=== PATIENT | male | born 1965 | race Caucasian/White ===

== ENCOUNTER 2016-06-09 17:30 | Emergency (ER) | payer SELFPAY ==
[2016-06-09 17:40] VITALS: TEMP 97.7; BMI 28.8
[2016-06-09 18:44] LABS: BASOPHIL 0.6 % (0-2.0); EOSINOPHIL 1.6 % (0-4.5); MCH 28.9 pg (25.7-33.7); MCHC 33.3 g/dl (32.0-35.9); MEAN CELL VOLUME 86.8 fl (80-96); NEUTROPHILS 47.5 % (42.8-82.8); PLATELET COUNT 249 K/MM3 (134-434); RDW 13.7 % (11.9-15.9); WHITE BLOOD COUNT 8.2 K/mm3 (4.0-10.0)
[2016-06-09 19:12] LABS: ANION GAP 7 (8-16); CALCIUM 8.7 mg/dL (8.5-10.1); CO2 30 mmol/L (21-32); CREATININE 1.2 mg/dL (0.7-1.3); GLUCOSE,RANDOM 93 mg/dL (74-106); SGOT/AST 23 U/L (15-37); SGPT/ALT 56 U/L (12-78)
[2016-06-09 19:16] LABS: ALK PHOS 95 U/L (45-117); BILIRUBIN,TOTAL 0.6 mg/dL (0.2-1.0); TOT PROT 7.1 g/dl (6.4-8.2); TROPONIN I < 0.02 ng/ml (0.00-0.05)
--- NOTE | 2016-06-09 20:53 | PDOC ---
History of Present Illness - General Chief Complaint: Syncope/Near Syncope Stated Complaint: CHEST PAIN&SYNCOPE Time Seen by Provider: 06/09/16 18:01 History Source: Patient Exam Limitations: No Limitations - History of Present Illness Presenting Symptoms: Chest Pain Timing/Duration: reports: intermittent Severity/Quality: reports: mild Location: reports: substernal Chest Pain Radiation: reports: arms (left) Activities at Onset: reports: none Prior Chest Pain/Cardiac Workup: reports: No prior chest pain, No prior cardiac workup, Non-cardiac Modifying Factors: improves with: rest Past History - Travel Traveled outside of the country in the last 30 days: No Close contact w/someone who was outside of country & ill: No - Past Medical History Allergies/Adverse Reactions: Allergies Allergy/AdvReac Type Severity Reaction Status Date / Time Penicillins Allergy Mild Verified 06/09/16 17:33 acetaminophen [From Tylenol] Allergy Rash Verified 06/09/16 17:33 Home Medications: Ambulatory Orders Enalapril Maleate [Vasotec -] 10 mg PO DAILY 05/19/13 Diabetes: Yes HTN: Yes Suicide Attempt (Hx): No - Surgical History Cholecystectomy: Yes - Immunization History Immunization Up to Date: Yes - Psycho/Social/Smoking Cessation Hx Anxiety: No Suicidal Ideation: No Smoking Status: No Smoking History: Never smoked Number of Cigarettes Smoked Daily: 0 Cigars Per Day: 0 Hx Alcohol Use: No Drug/Substance Use Hx: No Substance Use Type: None Cardiac Specific PMH - Complaint Specific PMHX Abdominal Aortic Aneurysm: No Angina: No Review of Systems - Review of Systems Able to Perform ROS?: Yes Comments:: 06/09/16 20:52 CONSTITUTIONAL: Absent: fever, chills, diaphoresis, generalized weakness, malaise, loss of appetite HEENT: Absent: rhinorrhea, nasal congestion, throat pain, throat swelling, difficulty swallowing, mouth swelling, ear pain, eye pain, visual Changes CARDIOVASCULAR: Left sided cp Absent: loss of consciousness, palpitations, irregular heart rate, peripheral edema RESPIRATORY: Absent: cough, shortness of breath, dyspnea with exertion, orthopnea, wheezing, stridor, hemoptysis GASTROINTESTINAL: Absent: abdominal pain, abdominal distension, nausea, vomiting, diarrhea, constipation, melena, hematochezia GENITOURINARY: Absent: dysuria, frequency, urgency, hesitancy, hematuria, flank pain, genital pain MUSCULOSKELETAL: Absent: myalgia, arthralgia, joint swelling SKIN: Absent: rash, itching, pallor HEMATOLOGIC/IMMUNOLOGIC: Absent: easy bleeding, easy bruising, lymphadenopathy, frequent infections ENDOCRINE: Absent: unexplained weight gain, unexplained weight loss, heat intolerance, cold intolerance NEUROLOGIC: Absent: headache, focal weakness or paresthesias, dizziness, unsteady gait, seizure, mental status changes, bladder or bowel incontinence PSYCHIATRIC: Absent: anxiety, depression, suicidal or homicidal ideation, hallucinations. Is the patient limited Georgian proficient: No *Physical Exam - Vital Signs Last Vital Signs Temp Pulse Resp BP Pulse Ox 97.7 F 70 19 161/100 100 06/09/16 17:33 06/09/16 17:33 06/09/16 17:33 06/09/16 17:33 06/09/16 17:33 - Physical Exam Comments: 06/09/16 20:53 GENERAL: Well developed, well nourished. Awake and alert. No acute distress. HEENT: Normocephalic, atraumatic. PERRLA, EOMI. No conjunctival pallor. Sclera are non- icteric. Moist mucous membranes. Oropharynx is clear. NECK: Supple. Full ROM. No JVD. Carotid pulses 2+ and symmetric, without bruits. No thyromegaly. No lymphadenopathy. CARDIOVASCULAR: Regular rate and rhythm. No murmurs, rubs, or gallops. Distal pulses are 2+ and symmetric. PULMONARY: No evidence of respiratory distress. Lungs clear to auscultation bilaterally. No wheezing, rales or rhonchi. ABDOMINAL: Soft. Non-tender. Non-distended. No rebound or guarding. No organomegaly. Normoactive bowel sounds. MUSCULOSKELETAL Normal range of motion at all joints. No bony deformities or tenderness. No CVA tenderness. EXTREMITIES: No cyanosis. No clubbing. No edema. No calf tenderness. SKIN: Warm and dry. Normal capillary refill. No rashes. No jaundice. NEUROLOGICAL: Alert, awake, appropriate. Cranial nerves 2-12 intact. No deficits to light touch and temperature in face, upper extremities and lower extremities. No motor deficits in the in face, upper extremities and lower extremities. Normoreflexic in the upper and lower extremities. Normal speech. Toes are down- going bilaterally. Gait is normal without ataxia. PSYCHIATRIC: Cooperative. Good eye contact. Appropriate mood and affect. Heart Score/ECG Review - History History: Slightly suspicious - Electrocardiogram EKG: Normal - Age Age: 45-65 - Risk Factors Risk Factors Heart Score: Yes Hx Obesity Based on the list above the patient has:: No risk factors known - Troponin Troponin: </= normal limit - Score Heart Score - Total: 1 - ECG Intrepretation Rhythm: Regular Rhythm - Hamilton Hamilton: Normal - P and NM Prominent R with upright T in V1 (true posterior ND): No Delta Wave(s) Present: No WPW: No - QRS Poor R Wave Progression: No Q Wave Present: No - ST and T Early Repolarization: No Non Specific ST-T Wave changes: No ED Treatment Course - LABORATORY CBC & Chemistry Diagram: 06/09/16 18:10 06/09/16 18:10 - ADDITIONAL ORDERS Additional order review: Laboratory Results 06/09/16 06/09/16 06/09/16 23:04 23:04 20:52 D-Dimer < 200 Sodium Potassium Chloride Carbon Dioxide Anion Gap BUN Creatinine Creat Clearance w eGFR Random Glucose Calcium Total Bilirubin AST ALT Alkaline Phosphatase Creatine Kinase 159 Creatine Kinase Index CK-MB (CK-2) CK-MB (CK-2) Rel Index Cancelled Troponin I < 0.02 B-Natriuretic Peptide Total Protein Albumin 06/09/16 06/09/16 18:10 18:10 D-Dimer Sodium 141 Potassium 4.2 Chloride 104 Carbon Dioxide 30 Anion Gap 7 L BUN 12 D Creatinine 1.2 Creat Clearance w eGFR > 60 Random Glucose 93 Calcium 8.7 Total Bilirubin 0.6 AST 23 ALT 56 Alkaline Phosphatase 95 Creatine Kinase 165 Creatine Kinase Index 0.7 CK-MB (CK-2) 1.258 CK-MB (CK-2) Rel Index Cancelled Troponin I < 0.02 B-Natriuretic Peptide 12.27 Total Protein 7.1 Albumin 4.0 06/09/16 18:10 RBC 5.12 MCV 86.8 MCHC 33.3 RDW 13.7 MPV 9.0 Neutrophils % 47.5 Lymphocytes % 41.6 H Monocytes % 8.7 Eosinophils % 1.6 Basophils % 0.6 Progress Note - Progress Note Progress Note: 40-year-old male presents to the emergency department complaining of left-sided chest pain. Pain is described as 4/10 sharp intermittent discomfort radiating down the left arm without dizziness, lightheadedness, headaches, nausea/vomiting , fever/chills, visual disturbance, neck pains, shortness of breath, abdominal pains, urinary symptoms. Patient states this pain has been ongoing for 25 days. Patient reports he's in the emergency department today because he found time in his busy schedule to be examined. The pain is exacerbated on deep inspiration and movement and alleviated at rest. Patient reports he's under a heavy amount of stress recently over family matters. PMD: DR. Hopkins *DC/Admit/Observation/Transfer Diagnosis at time of Disposition: Atypical chest pain, Stress at home - Discharge Dispostion Condition at time of disposition: Guarded - Referrals Referrals: Sunny Ballard MD [Staff Physician] - - Patient Instructions Printed Discharge Instructions: DI for Atypical Chest Pain Additional Instructions: Follow up with your physician and a drum stock clerk(one is listed on your discharge for an echocardiogram) Return to the ER for severe/persistent/worsening symptoms
--- NOTE | 2016-06-09 20:58 | PDOC ---
[id number]/100 100 06/09/16 17:33 06/09/16 17:33 06/09/16 17:33 06/09/16 17:33 06/09/16 17:33 ED Treatment Course - LABORATORY CBC & Chemistry Diagram: 06/09/16 18:10 06/09/16 18:10 - ADDITIONAL ORDERS Additional order review: Laboratory Results 06/09/16 06/09/16 18:10 18:10 Sodium 141 Potassium 4.2 Chloride 104 Carbon Dioxide 30 Anion Gap 7 L BUN 12 D Creatinine 1.2 Creat Clearance w eGFR > 60 Random Glucose 93 Calcium 8.7 Total Bilirubin 0.6 AST 23 ALT 56 Alkaline Phosphatase 95 Creatine Kinase 165 Creatine Kinase Index 0.7 CK-MB (CK-2) 1.258 CK-MB (CK-2) Rel Index Cancelled Troponin I < 0.02 B-Natriuretic Peptide 12.27 Total Protein 7.1 Albumin 4.0 06/09/16 18:10 RBC 5.12 MCV 86.8 MCHC 33.3 RDW 13.7 MPV 9.0 Neutrophils % 47.5 Lymphocytes % 41.6 H Monocytes % 8.7 Eosinophils % 1.6 Basophils % 0.6 Medical Decision Making - Medical Decision Making 06/09/16 20:58 agree with care from LYN Phillips *DC/Admit/Observation/Transfer Diagnosis at time of Disposition: Atypical chest pain, Stress at home - Discharge Dispostion Disposition: HOME Condition at time of disposition: Improved - Referrals Referrals: Sunny Ballard MD [Staff Physician] - - Patient Instructions Printed Discharge Instructions: DI for Atypical Chest Pain Additional Instructions: Follow up with your physician and a filter helper(one is listed on your discharge for an echocardiogram) Return to the ER for severe/persistent/worsening symptoms Print Language: PORTUGUESE
[2016-06-09 23:52] LABS: TROPONIN I < 0.02 ng/ml (0.00-0.05)
[2016-06-10] MEDS ORDERED: hydrALAZINE HCL 20 MG/ML VIAL IVPUSH ONE (00:43)
[2016-06-10] MEDS ORDERED: hydrALAZINE HCL 20 MG/ML VIAL ONE (01:18)
[2016-06-10 01:56] VITALS: BP 134/87; PULSE 69
--- NOTE | 2016-06-10 10:00 | EKG ---
Test Reason : Blood Pressure : / mmHG Vent. Rate : 062 BPM Atrial Rate : 062 BPM P-R Int : 166 ms QRS Dur : 088 ms QT Int : 376 ms P-R-T Axes : 024 -17 007 degrees QTc Int : 381 ms NORMAL SINUS RHYTHM NO PREVIOUS ECGS AVAILABLE Confirmed by ARMIN MARTINEZ MD ([id number]) on 06/10/2016 9:59:50 AM Referred By: Confirmed By:ARMIN MARTINEZ MD
== END 2016-06-10 01:59 | disposition home or self-care (01) ==
LOC: JER 17:30
PROC: 3E033GC Introduction of Other Therapeutic Substance into Peripheral Vein, Percutaneous Approach (ICD-10-PCS; principal; 2016-06-09)
DX: R07.89 Other chest pain (principal); Z63.8 Other specified problems related to primary support group; I10 Essential (primary) hypertension; E11.9 Type 2 diabetes mellitus without complications
CPT/HCPCS: 36415; 71020-TC; 80053; 82550; 82553; 83880; 84484; 85025; 85379; 93005; 93010; 99283-25

== ENCOUNTER 2016-10-02 11:57 | Emergency (ER) | payer SELFPAY ==
[2016-10-02 12:02] VITALS: BMI 30.7
[2016-10-02] MEDS ORDERED: PANTOPRAZOLE SODIUM 40 MG in SODIUM CHLORIDE 100 ML IVPB ONE (12:44)
[2016-10-02] MEDS ORDERED: PANTOPRAZOLE SODIUM 100 ML IVPB ONE (12:50)
[2016-10-02 13:01] LABS: BASOPHIL 0.8 % (0-2.0); EOSINOPHIL 2.1 % (0-4.5); MCHC 33.5 g/dl (32.0-35.9); MEAN CELL VOLUME 86.7 fl (80-96); MEAN PLT VOLUME 8.9 fl (7.5-11.1); NEUTROPHILS 48.3 % (42.8-82.8); PLATELET COUNT 219 K/MM3 (134-434); RDW 13.6 % (11.9-15.9); URINE APPEARANCE CLEAR; URINE BILIRUBIN NEGATIVE (NEGATIVE); URINE BLOOD NEGATIVE (NEGATIVE); URINE COLOR LTYELLOW; URINE GLUCOSE (UA) NEGATIVE (NEGATIVE); URINE KETONE NEGATIVE (NEGATIVE); URINE LEUK ESTERASE NEGATIVE (NEGATIVE); URINE NITRITE NEGATIVE (NEGATIVE); URINE PROTEIN NEGATIVE (NEGATIVE); URINE UROBILINOGEN NEGATIVE E.U./dl (0.2-1.0); WHITE BLOOD COUNT 7.3 K/mm3 (4.0-10.0)
[2016-10-02 13:25] LABS: ALBUMIN 4.1 g/dl (3.4-5.0); ANION GAP 4 (8-16); BILIRUBIN,TOTAL 0.9 mg/dL (0.2-1.0); CALCIUM 9.2 mg/dL (8.5-10.1); CO2 33 mmol/L (21-32); CREATININE 1.4 mg/dL (0.7-1.3); GLUCOSE,RANDOM 94 mg/dL (74-106); MAGNESIUM 2.3 mg/dL (1.8-2.4); SGPT/ALT 63 U/L (12-78); TOT PROT 7.4 g/dl (6.4-8.2)
[2016-10-02 13:30] LABS: ALK PHOS 85 U/L (45-117); SGOT/AST 27 U/L (15-37)
--- NOTE | 2016-10-02 13:37 | PDOC ---
History of Present Illness - General Chief Complaint: Pain Stated Complaint: ABD PAIN Time Seen by Provider: 10/02/16 12:20 History Source: Patient Exam Limitations: No Limitations - History of Present Illness Travel History: No Initial Comments: 10/02/16 13:37 51-year-old male presents the emergency room with complaints of a burning sensation to his epigastric area radiating to his right upper quadrant. Patient states symptoms began a few days ago but have not worsened in severity. Patient denies recent change in diet, fever, chills, chest pain, shortness of breath, abd distention, or constipation. Patient does state has had some intermittent diarrhea since onset. Patient denies recent travel, recent illness but does state has history of hep C secondary to alcohol abuse years ago. Patient states history of cholecystectomy and denies history of acid reflux. Patient is due to see a home theater specialist as per recommendations from his PCP who he sees for hypertension. Timing/Duration: reports: intermittent Quality: reports: mild, burning Abdominal Pain Onset Location: reports: RUQ, epigastric Pain Radiation: reports: no radiation Activities at Onset: reports: none Aggravating Factors: improves with: None Alleviating Factors: improves with: None Past History - Past Medical History Allergies/Adverse Reactions: Allergies Allergy/AdvReac Type Severity Reaction Status Date / Time Penicillins Allergy Mild Verified 10/02/16 12:01 acetaminophen [From Tylenol] Allergy Rash Verified 10/02/16 12:01 Home Medications: Ambulatory Orders Hydrochlorothiazide 25 mg PO DAILY 10/02/16 Diabetes: Yes HTN: Yes Liver Disease: Yes (HEP B.) Suicide Attempt (Hx): No - Surgical History Cholecystectomy: Yes - Immunization History Immunization Up to Date: Yes - Psycho/Social/Smoking Cessation Hx Anxiety: No Suicidal Ideation: No Smoking Status: No Smoking History: Never smoked Number of Cigarettes Smoked Daily: 0 Cigars Per Day: 0 Hx Alcohol Use: No Drug/Substance Use Hx: No Substance Use Type: None Patient Lives Alone: No Lives with/in: spouse/SO Review of Systems - Review of Systems Able to Perform ROS?: Yes Constitutional: No: Symptoms Reported HEENTM: No: Symptoms Reported Respiratory: No: Symptoms reported Cardiac (ROS): No: Symptoms Reported ABD/GI: Yes: Abdominal cramping. No: Nausea, Vomiting : No: Symptoms Reported Musculoskeletal: No: Symptoms Reported Integumentary: No: Symptoms Reported Neurological: No: Symptoms reported Endocrine: No: Symptoms Reported Hematologic/Lymphatic: No: Symptoms Reported *Physical Exam - Vital Signs Last Vital Signs Temp Pulse Resp BP Pulse Ox 97.8 F 84 20 143/80 97 10/02/16 11:58 10/02/16 11:58 10/02/16 11:58 10/02/16 11:58 10/02/16 11:58 - Physical Exam General Appearance: Yes: Nourished, Appropriately Dressed. No: Apparent Distress HEENT: positive: EOMI, SHELLIE, TMs Normal, Pharynx Normal. negative: Pale Conjunctivae Neck: positive: Supple Respiratory/Chest: positive: Lungs Clear, Normal Breath Sounds. negative: Respiratory Distress, Accessory Muscle Use Cardiovascular: positive: Regular Rhythm, Regular Rate. negative: Murmur Gastrointestinal/Abdominal: positive: Normal Bowel Sounds, Soft, Tenderness ( epigastric, right upper quadrant). negative: Distended, Hepatomegaly Musculoskeletal: negative: Normal Inspection Extremity: positive: Normal Capillary Refill. negative: Pedal Edema Integumentary: positive: Normal Color, Warm, Moist Neurologic: positive: Normal Mood/Affect, Motor Strength 5/5 (ambulatory) ED Treatment Course - LABORATORY CBC & Chemistry Diagram: 10/02/16 12:55 10/02/16 12:55 - ADDITIONAL ORDERS Additional order review: Laboratory Results 10/02/16 12:55 Urine Color Ltyellow Urine Appearance Clear Urine pH 7.0 Urine Protein Negative Urine Glucose (UA) Negative Urine Ketones Negative Urine Blood Negative Urine Nitrite Negative Urine Bilirubin Negative Urine Urobilinogen Negative Ur Leukocyte Esterase Negative 10/02/16 12:55 RBC 5.08 MCV 86.7 MCHC 33.5 RDW 13.6 MPV 8.9 Neutrophils % 48.3 Lymphocytes % 40.2 H Monocytes % 8.6 Eosinophils % 2.1 Basophils % 0.8 Medical Decision Making - Medical Decision Making 10/02/16 13:41 Pt with episodic epigastric burning with radiation to his right upper quadrant without nausea vomiting fever or chills. Patient states history of cholecystectomy recently started hydrochlorothiazide secondary to hypertension. Patient denies change in urine pattern, constipation, or abdominal distention. Patient does state intermittent diarrhea for the past week. Patient examined had epigastric and right upper quadrant tenderness without change in vital signs. Patient concerning for GERD, pancreatitis, Choledocholithiasis viral illness, worsening liver disease secondary to hepatitis and previous EtOH abuse 10/02/16 13:43 Laboratory Tests 10/02/16 10/02/16 10/02/16 12:55 12:55 12:55 WBC 7.3 Hgb 14.8 Hct 44.0 Neutrophils % 48.3 Sodium 143 Potassium 4.0 Chloride 106 Carbon Dioxide 33 H Anion Gap 4 L BUN 20 H D Creatinine 1.4 H Random Glucose 94 Magnesium 2.3 AST 27 ALT 63 Lipase 134 Urine Ketones Negative Urine Nitrite Negative Ur Leukocyte Esterase Negative 10/02/16 16:31 Kidney ultrasound shows left renal cyst measuring 1 cm containing a 3 mm Patient along the cyst based. Recommendation is to have a 6 month follow-up via sonogram. Otherwise a partially imaged liver demonstrates diffuse fatty infiltration. Patient will be discharged home to follow-up with his primary care physician. *DC/Admit/Observation/Transfer Diagnosis at time of Disposition: Gastroesophageal reflux disease Qualifiers: Esophagitis presence: without esophagitis Qualified Code(s): K21.9 - Gastro- esophageal reflux disease without esophagitis - Discharge Dispostion Disposition: HOME Condition at time of disposition: Improved - Patient Instructions Printed Discharge Instructions: DI for Gastroesophageal Reflux Disease (GERD) Additional Instructions: Please take Protonix as prescribed. Please avoid spicy greasy food. \ Please follow up with referred home theater specialist and your primary care physician. Please bring copy the lab work with you. Your ultrasound showed no acute findings except for fatty liver
[2016-10-02] MEDS ORDERED: SODIUM CHLORIDE 1,000 ML IV STA (13:39)
[2016-10-02 16:04] VITALS: BP 143/95; PULSE 81; TEMP 97.7
== END 2016-10-02 16:40 | disposition home or self-care (01) ==
LOC: JER 11:57
PROC: 3E0337Z Introduction of Electrolytic and Water Balance Substance into Peripheral Vein, Percutaneous Approach (ICD-10-PCS; principal; 2016-10-02)
PROC: 3E033GC Introduction of Other Therapeutic Substance into Peripheral Vein, Percutaneous Approach (ICD-10-PCS; 2016-10-02)
DX: K21.9 Gastro-esophageal reflux disease without esophagitis (principal)
CPT/HCPCS: 36415; 76775-TC; 80053; 81003; 83690; 83735; 85025; 99284-25

== ENCOUNTER 2017-03-31 21:25 | Emergency (ER) | payer SELFPAY ==
--- NOTE | 2017-03-31 21:32 | PDOC ---
Rapid Medical Evaluation Time Seen by Provider: 03/31/17 21:30 Medical Evaluation: Allergies Allergy/AdvReac Type Severity Reaction Status Date / Time Penicillins Allergy Mild Verified 10/02/16 12:01 acetaminophen [From Tylenol] Allergy Rash Verified 10/02/16 12:01 03/31/17 21:31 I have performed a brief in-person evaluation of this patient. The patient presents with a chief complaint of: non productive cough x2d with subjective fever/chills and sore throat (101.7 Now/oral in triage). Pt took Ibuprofen at 1800-1900hrs PCN allergic ALLERGIC TO TYLENOL/RASH Pertinent physical exam findings: L/S CTAB I have ordered the following:Influenza, strep The patient will proceed to the ED for further evaluation.
[2017-03-31 21:36] VITALS: BP 124/79; PULSE 101; BMI 29.2
--- NOTE | 2017-03-31 21:48 | PDOC ---
History of Present Illness - General Chief Complaint: Cold Symptoms Stated Complaint: FEVER Time Seen by Provider: 03/31/17 21:30 History Source: Patient Exam Limitations: No Limitations - History of Present Illness Initial Comments: 03/31/17 21:48 Patient is a [51-year-old male with history of hypertension, non-insulin- dependent prediabetic, hep B presents with fever MAXIMUM TEMPERATURE of 102 since yesterday also complaining of right upper quadrant pain. Patient took Motrin at 6 PM today current temperature is 101.7 after Motrin. She has been able to eat and drink without difficulty, ambulatory to ER.] Allergies: Penicillin, acetaminophen Medications: [Amlodipine] Family History: Non-contributory Social History: Denies smoking, alcohol use, or IVDU Vital signs on arrival are [notable for temperature of 101.7] Review of Systems GENERAL/CONSTITUTIONAL: [Fever and chills. No weakness. No weight change.] HEAD, EYES, EARS, NOSE AND THROAT: [No change in vision. No ear pain or discharge. Sore throat. ] CARDIOVASCULAR: [No chest pain or shortness of breath.] RESPIRATORY: [No cough, wheezing, or hemoptysis.] GASTROINTESTINAL: [No nausea, vomiting, diarrhea or constipation. No rectal bleeding. Right upper quadrant pain] GENITOURINARY: [No dysuria, frequency, or change in urination.] MUSCULOSKELETAL: [No joint or muscle swelling or pain. No neck or back pain.] SKIN AND BREASTS: [No rash or easy bruising.] NEUROLOGIC: [No headache, vertigo, loss of consciousness, or loss of sensation.] PSYCHIATRIC: [No depression or anxiety.] ENDOCRINE: [No increased thirst. No abnormal weight change.] HEMATOLOGIC/LYMPHATIC: [No anemia, easy bleeding, or history of blood clots.] ALLERGIC/IMMUNOLOGIC: [No hives or skin allergy. No latex allergy.] Physical Exam: GENERAL: [The patient is awake, alert, and fully oriented, in no acute distress. ] HEAD: [Normal with no signs of trauma.] EYES: [Pupils equal, round and reactive to light, extraocular movements intact, sclera anicteric, conjunctiva clear.] ENT: [Ears normal, nares patent, oropharynx clear without exudates. Moist mucous membranes. No uvula deviation] NECK: [Normal range of motion, supple without lymphadenopathy, JVD, or masses.] LUNGS: [Breath sounds equal, clear to auscultation bilaterally. No wheezes, and no crackles.] HEART: [Regular rate and rhythm, normal S1 and S2 without murmur, rub or gallop. ] ABDOMEN: [Soft, tender to right upper quadrant,, normoactive bowel sounds. No guarding, no rebound. No masses. No bruising or abrasions] RECTAL : [Guaiac negative, normal rectal tone.] MUSCULOSKELETAL: [Normal range of motion, no edema. No clubbing or cyanosis. No cords, erythema, or tenderness. No CVA Tenderness with fist.] NEUROLOGICAL: [Cranial nerves II through XII grossly intact. Normal speech, normal gait.] PSYCH: [Normal mood, normal affect.] SKIN: [Warm, Dry, normal turgor, no rashes or lesions noted.] Past History - Past Medical History Allergies/Adverse Reactions: Allergies Allergy/AdvReac Type Severity Reaction Status Date / Time Penicillins Allergy Mild Verified 10/02/16 12:01 acetaminophen [From Tylenol] Allergy Rash Verified 10/02/16 12:01 Home Medications: Ambulatory Orders Amlodipine Besylate 5 mg PO DAILY 03/31/17 Oseltamivir Phosphate [Tamiflu] 75 mg PO BID #10 capsule 03/31/17 Diabetes: Yes HTN: Yes Liver Disease: Yes (HEP B.) - Surgical History Cholecystectomy: Yes - Immunization History Immunization Up to Date: Yes - Suicide/Smoking/Psychosocial Hx Smoking Status: No Smoking History: Never smoked Number of Cigarettes Smoked Daily: 0 Cigars Per Day: 0 Hx Alcohol Use: No Drug/Substance Use Hx: No Substance Use Type: None *Physical Exam - Vital Signs Last Vital Signs Temp Pulse Resp BP Pulse Ox 101.7 F H 101 H 20 124/79 99 03/31/17 21:34 03/31/17 21:34 03/31/17 21:34 03/31/17 21:34 03/31/17 21:34 Medical Decision Making - Medical Decision Making 03/31/17 22:10 A/P: Patient here for evaluation of sudden onset of fever, abdominal pain, generalized aches and pains. Sore throat. Rapid strep and rapid influenza were sent I will wait for results of rapid influenza highly suspicious for influenza- type illness. 03/31/17 22:20 Patient is influenza A positive will DC patient home on Tamiflu, follow-up with PMD, Motrin as needed for fever. Current temperature is 98.7 patient is eating and drinking in no acute distress. I discussed the physical exam findings, ancillary test results and final diagnoses with the patient. I answered all of the patient's questions. The patient was satisfied with the care received and felt comfortable with the discharge plan and treatment plan. The patient will call to arrange follow-up and will return to the Emergency Department with any new, persistent or worsening symptoms. *DC/Admit/Observation/Transfer Diagnosis at time of Disposition: Influenza A - Discharge Dispostion Disposition: HOME Condition at time of disposition: Stable Admit: No - Prescriptions Prescriptions: Oseltamivir Phosphate [Tamiflu] 75 mg PO BID #10 capsule - Referrals Referrals: Jason Villa [Primary Care Provider] - - Patient Instructions Printed Discharge Instructions: DI for Influenza -- Adult Additional Instructions: Increase fluids to prevent dehydration Motrin for fever greater than 101.0 Please followup with primary care in 3 days if symptoms persist Return to emergency department any increased cough, fever, inability to drink or other concerns Print Language: TELUGU - Post Discharge Activity Forms/Work/School Notes: Back to Work
[2017-03-31] MEDS ORDERED: IBUPROFEN 600 MG TABLET (FP) PO ONE (21:59)
[2017-03-31 22:17] VITALS: TEMP 98.4
== END 2017-03-31 22:29 | disposition home or self-care (01) ==
LOC: JERFT 21:25
DX: J10.1 Influenza due to other identified influenza virus with other respiratory manifestations (principal); I10 Essential (primary) hypertension; E11.9 Type 2 diabetes mellitus without complications; Z79.84 Long term (current) use of oral hypoglycemic drugs; Z86.19 Personal history of other infectious and parasitic diseases
CPT/HCPCS: 87070; 87077; 87430; 87804; 99281-25

== ENCOUNTER 2020-12-22 01:34 | Emergency (ER) | payer SELFPAY ==
[2020-12-22 01:49] VITALS: BP 150/90; PULSE 86; TEMP 97.6; BMI 29.5
[2020-12-22] MEDS ORDERED: IBUPROFEN 400 MG TABLET (FP) PO ONE ×2 (03:51→03:55)
[2020-12-22] MEDS ORDERED: LIDOCAINE 5% TOPICAL PATCH TP ONE (03:52)
[2020-12-22] MEDS ORDERED: LIDOCAINE 5% TOPICAL PATCH ONE (03:55)
[2020-12-22] MEDS ORDERED: LIDOCAINE PATCH REMOVAL MC SCH (22:00)
== END 2020-12-22 04:42 | disposition home or self-care (01) ==
LOC: JER 01:34
DX: M25.469 Effusion, unspecified knee (principal); S80.919A Unspecified superficial injury of unspecified knee, initial encounter; W19.XXXA Unspecified fall, initial encounter; Y92.9 Unspecified place or not applicable
CPT/HCPCS: 73562-TC-RT-FY; 99284-25

== ENCOUNTER 2022-01-12 04:11 | Emergency (ER) | payer SELFPAY ==
[2022-01-12 10:50] LABS: THROAT:GRP A STREP NOT DETECTED (NOTDETECTED)
== END 2022-01-12 07:35 | disposition left against medical advice (07) ==
LOC: JER 04:11
DX: J06.9 Acute upper respiratory infection, unspecified (principal)
CPT/HCPCS: 0241U-QW; 87070; 87651; 99283-25